=== PATIENT | female | born 1945 | race Caucasian/White ===

== ENCOUNTER → 2018-10-27 | Outpatient (CLI) | payer MEDICARE | END | disposition home or self-care (01) | LOC: PCVCCLINIC 11:27 | PROVIDERS: ATTEND Internal Medicine | DX: I48.0 Paroxysmal atrial fibrillation (principal); I10 Essential (primary) hypertension; E03.9 Hypothyroidism, unspecified | CPT/HCPCS: 93005; G0463 ==

== ENCOUNTER → 2018-12-21 | Outpatient (CLI) | payer MEDICARE ==
[~2018-12-21] MED LIST: REGADENOSON 0.4 MG/5 ML DISP.SYRIN. IV ONE
--- NOTE | 2018-12-21 08:31 | PCVCIMAG ---
APPROVED REPORT Study performed: 12/21/2018 07:42:29 EXAM: Comprehensive 2D, Doppler, and color-flow Echocardiogram Patient Location: Echo lab Status: routine BSA: 1.97 HR: 57 bpmBP: 158/98 mmHg Rhythm: NSR, bradycardia Other Information Study Quality: Adequate Risk Factors: Cardiac Risk Factors: HTN Indications Palpitations parox a fib 2D Dimensions IVSd: 9.53 (7-11mm) LVDd: 45.87 mm PWd: 8.79 (7-11mm)Ascending Ao: 32.81 (22-36mm) LVDs: 36.56 (25-40mm) Left Atrium: 39.69 (27-40mm) Aortic Root: 27.58 mm LV Single Plane 4CH: 60.06 % LV Single Plane 2CH: 65.46 % Biplane EF: 62.4 % Volumes Left Atrial Volume (Systole) Single Plane 4CH: 52.63 mLSingle Plane 2CH: 81.99 mL LA ESV Index: 36.00 mL/m2 Aortic Valve AoV Peak Sonu.: 1.38 m/s AO Peak Gr.: 7.57 mmHgLVOT Max P.82 mmHg LVOT Max V: 0.98 m/s Mitral Valve E/A Ratio: 0.8 MV Decel. Time: 299.52 ms MV E Max Sonu.: 0.64 m/s MV A Sonu.: 0.83 m/s IVRT: 117.65 ms Pulmonary Valve PV Peak Sonu.: 0.92 m/sPV Peak Gr.: 3.37 mmHg Pulmonary Vein P Vein S: 0.26 m/sP Vein A: 0.31 m/s P Vein D: 0.41 m/sP Vein A Dur.: 128.0 msec P Vein S/D Ratio: 0.63 Tricuspid Valve TR Peak Sonu.: 2.57 m/s TR Peak Gr.: 26.48 mmHg Left Ventricle The left ventricle is normal size. There is normal LV segmental wall motion. There is normal left ventricular wall thickness. Left ventricular systolic function is normal. The left ventricular ejection fraction is within the normal range. LVEF is 60-65%. Mild diastolic dysfunction is present (impaired relaxation pattern). Right Ventricle The right ventricle is normal size. The right ventricular systolic function is normal. Atria Left atrium is mildly dilated. Right atrium is mildly dilated. Aortic Valve The aortic valve is normal in structure, trileaflet. Trace aortic regurgitation. There is no aortic valvular stenosis. Mitral Valve The mitral valve is normal in structure. Mild mitral regurgitation. No evidence of mitral valve stenosis. Tricuspid Valve The tricuspid valve is normal in structure. Mild tricuspid regurgitation with PAP of 33 mmHg. Pulmonic Valve The pulmonary valve is normal in structure. Trace pulmonic regurgitation. Great Vessels The aortic root is normal in size. IVC is normal in size and collapses >50% with inspiration. Pericardium There is no pericardial effusion. There is no pleural effusion. <Conclusion> Left ventricular systolic function is normal. There is normal LV segmental wall motion. LVEF is 60-65%. Mild diastolic dysfunction Both atria are mildly dilated. The aortic valve is normal in structure, trileaflet. Trace aortic regurgitation. The mitral valve is normal in structure. Mild mitral regurgitation. Mild tricuspid regurgitation with pulmonary artery pressure of 33 mmHg. There is no pericardial effusion.
--- NOTE | 2018-12-21 13:51 | PCVCIMAG ---
APPROVED REPORT Imaging Protocol: Rest Tc-99m/Stress Tc-99m 1 day Study performed: 12/21/2018 08:54:03 Indication: Paroxysmal Afib, On Flecainide Patient Location: Out-Patient Stress Nurse: Chhaya Lopez RN, Lyudmila Pineda RN CT Tech:CYNTHIA Zimmerman Ht: 5 ft 4 in Wt: 204 lbs BSA: 1.97 m2 HR: 55 bpm BP: 173/79 mmHg BMI: 35.0 Rhythm: Sinus Bradycardia, 1st degree AV block Medical History Medical History: HTN Medications: ASA, Levoythyroxine, Lisinopril, Metoprolol, Flecainide Allergies: No known drug allergies Cardiac Risk Factors: Age Pretest Chest Pain Characteristics: No chest pain Exercise History: Sedentary Meds Held (24 hrs): Metoprolol Resting Data Rest SPECT myocardial perfusion imaging was performed in supine position 45 minutes following the intravenous injection of 10.3 mCi of Tc-99m Sestamibi. Time of rest injection: 0845 Date: 12/21/2018 Administration Route: IV Administration Site: Right AC Pharmacologic Stress Pharmacologic stress test was performed by injecting Regadenoson 0.4 mg IV push over 10-15 seconds immediately followed by the intravenous injection of 31.8 mCi of Tc-99m Sestamibi. Time of stress injection: 1020 Date: 12/21/2018 Administration Route: IV Administration Site: Right AC Gated Stress SPECT was performed 45 minutes after stress injection. The images were gated to evaluate regional wall motion and calculate left ventricular ejection fraction. Stress Test Details Stress Test: Pharmacologic stress testing performed using 0.4 mg of regadenoson per 5 mL given IV over 10 seconds. Reason for pharmacologic stress test: physical limitation. HRMax Heart Rate (APMHR): 146 bpm Resting HR: 55 bpmTarget HR (85% APMHR): 124 bpm Max HR Achieved: 68 bpm % of APMHR: 46 Recovery HR: 64 bpm BP Resting BP: 173/79 mmHg Max BP: 149/80 mmHg Recovery BP: 155/68 mmHg ECG Resting ECG: Sinus Bradycardia, 1st degree AV block Stress ECG: Sinus Rhythm, 1st degree AV block Maximum ST Deviation: 0 mm Arrhythmia: None Recovery ECG: Sinus Rhythm, 1st degree AV block Recovery ST Change: None Recovery ST Deviation: 0 mm Recovery Arrhythmia: None Clinical Reason for Termination: Completed protocol Stress Symptoms: Dyspnea Exercise duration: 0 min 55 sec Symptoms resolved with caffeine. Stress ECG Conclusion ECG: Non-ischemic Clinical: Non-ischemic Study Quality Study: Good Study Data Post stress, the left ventricular ejection was 70%.. SSS: 0 SRS: 0 SDS: 0 TID = 0.96. Perfusion No evidence of stress induced ischemia or prior myocardial infarction. Wall Motion Normal left ventricular size and function with no regional wall motion abnormalities. Nuclear Conclusion No evidence of stress induced ischemia or prior myocardial infarction. Normal left ventricular size and function with no regional wall motion abnormalities. Post stress, the left ventricular ejection was 70%. No prior study available for comparison. Interpreted by: Octavio Bowie MD Electronically Approved: 12/21/2018 13:48:54 <Conclusion> ECG: Non-ischemic Clinical: Non-ischemic
== END | disposition home or self-care (01) ==
LOC: PCVCIMAG 07:40
PROVIDERS: ATTEND Internal Medicine
DX: I08.1 Rheumatic disorders of both mitral and tricuspid valves (principal); I44.0 Atrioventricular block, first degree; R00.1 Bradycardia, unspecified; I10 Essential (primary) hypertension; I48.0 Paroxysmal atrial fibrillation; R00.2 Palpitations; E03.9 Hypothyroidism, unspecified; Z79.82 Long term (current) use of aspirin
CPT/HCPCS: 78452; 93017; 93306; A9500; G0463; J2785

== ENCOUNTER → 2019-03-28 | Outpatient (CLI) | payer MEDICARE | END | disposition home or self-care (01) | LOC: PCVCCLINIC 15:30 | PROVIDERS: ATTEND Internal Medicine | DX: I48.0 Paroxysmal atrial fibrillation (principal); I10 Essential (primary) hypertension; E78.5 Hyperlipidemia, unspecified; Z79.82 Long term (current) use of aspirin | CPT/HCPCS: 36415; 80061; 93005; G0463 ==